=== PATIENT | male | born 1955 | race Caucasian/White ===

== ENCOUNTER 2019-05-23 05:39 | Inpatient (IN) ==
[2019-05-16 11:48] LABS: Basophils # 0.1 10*3/uL (0.0-0.2); Basophils % 0.7 % (0.0-0.8); Eosinophils # 0.3 10*3/uL (0.0-0.87); Eosinophils % 5.1 % (0.00-10.9); Immature Granulocytes % 0.3 %; Immature Granulocytes Absolute 0.02 #; Lymphocytes # 1.5 10*3/uL (1.4-4.0); Lymphocytes % 22.9 % (21.2-54.2); Mean Corpuscular HGB Conc 33.3 GM/DL (32-36); Mean Platelet Volume 10.1 FL (9.6-12.0); Monocytes % 10.5 % (1.7-12.7); Neutrophils % 60.5 % (38.7-73.9); Platelet Count 202 T/CUMM (130-400); White Blood Count 6.7 T/CUMM (4-12)
[2019-05-16 11:55] LABS: Apearance,Urine CLEAR (Clear); Bilirubin,Urine Negative (Negative); Blood, Urine Small mg/dL (Negative); Glucose,Urine (UA) Negative (Negative); Ketones,Urine Negative (Negative); Mucus,Urine Occasional /LPF (Occasional); Nitrite,Urine Negative (Negative); Protein,Urine Negative; RBC,Urine <1 /HPF (0-4); Urine Color Yellow (Yellow); Urine Urobilinogen < 2.0 EU/DL (0.2-1.0)
[2019-05-16 11:56] LABS: Partial Thromboplastin Time 27.5 SECS (20.8-36.0)
[2019-05-16 12:36] LABS: Albumin 4.1 G/DL (3.4-5.0); Bilirubin,Total 0.5 MG/DL (0.2-1.0); Calcium 8.6 MG/DL (8.5-10.1); Osmolality,Calculated 274.7 MOS/KG (273-304); Total Protein 7.5 G/DL (6.4-8.3)
[2019-05-23] MEDS ORDERED: BUPIVACAINE MPF 0.5% /EPI 30 ML VIAL ONE (06:29)
[2019-05-23] MEDS ORDERED: LIDOCAINE 1% 5 ML VIAL ONE (06:30)
[2019-05-23] MEDS ORDERED: VANCOMYCIN 1,000 MG VIAL ONE (06:30)
[2019-05-23] MEDS ORDERED: VANCOMYCIN INJ 1,000 MG in SODIUM CHLORIDE 0.9% 250 ML IV ONE (06:30)
[2019-05-23] MEDS ORDERED: LACTATED RINGERS 1,000 ML IV SCH (06:30)
[2019-05-23] MEDS ORDERED: DEXAMETHASONE 4 MG/1 ML VIAL ONE ×2 (06:30→09:09)
[2019-05-23] MEDS ORDERED: ceFAZolin 2,000 MG in PREMIX 1 EACH IV ONE (06:30)
[2019-05-23] MEDS ORDERED: MORPHINE 10 MG/10 ML VIAL ONE ×2 (06:57→09:08)
[2019-05-23] MEDS ORDERED: ONDANSETRON 4 MG/2 ML VIAL IV PRN ×2 (07:24→09:00)
[2019-05-23] MEDS ORDERED: MORPHINE 4 MG/1 ML VIAL IV PRN ×2 (07:24)
[2019-05-23] MEDS ORDERED: oxyCODONE IR 5 MG TABLET PO PRN ×2 (07:24)
[2019-05-23] MEDS ORDERED: MAGNESIUM HYDROXIDE SUSP 30 ML UDCUP PO PRN (07:24)
[2019-05-23] MEDS ORDERED: diphenhydrAMINE CAP 25 MG CAPSULE PO PRN (07:24)
[2019-05-23] MEDS ORDERED: ZALEPLON 5 MG CAPSULE PO PRN (07:24)
[2019-05-23] MEDS ORDERED: TRANEXAMIC ACID 1,000 MG/10 ML VIAL ONE (08:04)
[2019-05-23] MEDS ORDERED: BACITRACIN OINT 0.9 GM PACK TOP ONE (08:18)
[2019-05-23] MEDS ORDERED: diphenhydrAMINE 50 MG/1 ML VIAL IV PRN (09:00)
[2019-05-23] MEDS ORDERED: PROMETHAZINE INJ 25 MG in SODIUM CHLORIDE 0.9% 50 ML IV PRN (09:00)
[2019-05-23] MEDS ORDERED: MEPERIDINE 25 MG/1 ML VIAL IV PRN (09:00)
[2019-05-23] MEDS ORDERED: ONDANSETRON 4 MG/2 ML VIAL ONE (09:08)
[2019-05-23] MEDS ORDERED: LIDOCAINE 2% 5 ML VIAL ONE (09:08)
[2019-05-23] MEDS ORDERED: SEVOFLURANE 1 UNIT/15 MINUTE INH ONE (09:08)
[2019-05-23] MEDS ORDERED: KETOROLAC 30 MG/1 ML VIAL ONE (09:08)
[2019-05-23] MEDS ORDERED: MEPERIDINE 25 MG/1 ML VIAL ONE (09:08)
[2019-05-23] MEDS ORDERED: propofoL 200 MG/20 ML VIAL IV ONE (09:08)
[2019-05-23] MEDS ORDERED: LACTATED RINGERS 1,000 ML IV ONE (09:09)
[2019-05-23] MEDS ORDERED: GLYCOPYRROLATE 0.4 MG/2 ML VIAL ONE (09:09)
[2019-05-23] MEDS ORDERED: SUCCINYLCHOLINE 200 MG/10 ML VIAL ONE (09:09)
[2019-05-23] MEDS ORDERED: ePHEDrine 50 MG/ML AMP ONE (09:09)
[2019-05-23] MEDS ORDERED: MIDAZOLAM 2 MG/2 ML VIAL ONE (09:09)
[2019-05-23] MEDS ORDERED: ROCURONIUM 100 MG/10 ML VIAL IV ONE (09:09)
[2019-05-23] MEDS ORDERED: fentaNYL 100 MCG/2 ML VIAL ONE (09:10)
[2019-05-23] MEDS: LACTATED RINGERS 1,000 ML IV SCH ×2 (09:15→18:23)
[2019-05-23] MEDS: KETOROLAC 30 MG/1 ML VIAL IV SCH ×3 (09:16→21:35)
[2019-05-23] MEDS: DOCUSATE SODIUM 100 MG CAPSULE PO SCH ×2 (12:20→21:35)
[2019-05-23] MEDS: ceFAZolin 2,000 MG in PREMIX 1 EACH IV SCH ×2 (12:20→21:34)
[2019-05-23] MEDS ORDERED: SIMVASTATIN 40 MG TABLET PO SCH (21:00)
[2019-05-24] MEDS ORDERED: FONDAPARINUX 2.5 MG/0.5 ML SYRINGE SUBCUT SCH (01:26)
[2019-05-24] MEDS: KETOROLAC 30 MG/1 ML VIAL IV SCH (02:11)
[2019-05-24] MEDS: LACTATED RINGERS 1,000 ML IV SCH (04:21)
[2019-05-24 05:31] LABS: Basophils % 0.1 % (0.0-0.8); Eosinophils % 0.2 % (0.00-10.9); Hematocrit 33.8 VOL% (42.0-52.0); Hemoglobin 11.2 GM/DL (14.0-18.0); Immature Granulocytes % 0.5 %; Immature Granulocytes Absolute 0.05 #; Lymphocytes % 9.5 % (21.2-54.2); Mean Corpuscular HGB Conc 33.1 GM/DL (32-36); Mean Corpuscular Volume 88.7 FL (87-102); Mean Platelet Volume 10.9 FL (9.6-12.0); Neutrophils % 77.7 % (38.7-73.9); Platelet Count 153 T/CUMM (130-400); Red Blood Count 3.81 MC/CUMM (3.8-5.5); Red Cell Distribution Width 12.9 % (9.3-17.3); White Blood Count 10.8 T/CUMM (4-12)
[2019-05-24 06:01] LABS: Osmolality,Calculated 270.2 MOS/KG (273-304)
[2019-05-24] MEDS: DOCUSATE SODIUM 100 MG CAPSULE PO SCH (08:14)
[2019-05-24] MEDS ORDERED: BISOPROLOL/HCTZ 10-6.25 MG TABLET PO SCH (09:00)
[2019-05-24 11:49] VITALS: BP 133/80
[2019-05-24] MEDS ORDERED: CELECOXIB 200 MG CAPSULE PO SCH (13:25)
== END 2019-05-24 16:40 | disposition home health service (06) | DRG 470 ==
LOC: N.OR 05:39 → N.SDSINP 05:39 → N.3E 09:53
PROVIDERS: ADMIT Orthopaedic Surgery; ATTEND Orthopaedic Surgery